=== PATIENT | female | born 1990 | race Caucasian/White ===

== ENCOUNTER 2022-07-19 21:25 | Emergency (ER) | payer SELFPAY ==
[~2022-07-19] VITALS: Ht 162.6 cm; Wt 68.3 kg
[~2022-07-19 21:25] MED LIST: IBUP-2029 MT
[2022-07-19 21:45] VITALS: BP 95/42
[2022-07-19 22:14] LABS: CHLORIDE 107 mEq/L (98-107)
[2022-07-19 22:20] LABS: BASOPHILS % 0.8 % (0.0-2.0); EOSINOPHILS % 2.6 % (0.0-5.0); HEMATOCRIT. 38.4 % (36.0-48.0); LYMPHOCYTES % 34.2 % (20.0-50.0); MEAN CORPUSCULAR HEMOGLOBIN 28.6 pg (28.0-32.0); MEAN CORPUSCULAR VOLUME 84.4 fL (81.0-99.0); MEAN PLATELET VOLUME 8.7 fl (7.4-10.4); MONOCYTES % 4.5 % (2.0-8.0); NEUTROPHILS % 57.9 % (40.0-76.0); PLATELET 234 x1000/uL (130-400); RED BLOOD CELL COUNT 4.55 mill/uL (4.2-5.4); RED CELL DISTRIBUTION WIDTH 13.8 % (11.6-14.6)
[2022-07-19 22:30] LABS: B-HCG QUANTITATIVE < 1 mIU/mL (<3)
[2022-07-20] MEDS ORDERED: ACETAMINOPHEN 325MG TABLET PO ONE (02:15)
[2022-07-20] MEDS ORDERED: NITR-87 MT (05:33)
== END 2022-07-20 06:20 | disposition home or self-care (01) ==
LOC: ER 21:25
DX: N30.90 Cystitis, unspecified without hematuria (principal); E11.9 Type 2 diabetes mellitus without complications; Z90.49 Acquired absence of other specified parts of digestive tract; Z98.890 Other specified postprocedural states
CPT/HCPCS: 36415; 74176; 80053; 84484; 84702; 85025; 86850; 86900; 93005; 99285

== ENCOUNTER 2022-10-20 19:41 | Emergency (ER) | payer SELFPAY ==
[~2022-10-20] VITALS: Ht 162.6 cm; Wt 71.2 kg
[~2022-10-20 19:41] MED LIST changes: +NITR-87 MT
[2022-10-20 20:11] VITALS: BP 110/71; PULSE 72; RESP 20; TEMP 98.6; O2SAT 100
== END 2022-10-20 20:57 | disposition left against medical advice (07) ==
LOC: ER 20:20
DX: R07.9 Chest pain, unspecified (principal); Z90.49 Acquired absence of other specified parts of digestive tract; Z98.890 Other specified postprocedural states
CPT/HCPCS: 93005; 99283